=== PATIENT | female | born 1960 | race Caucasian/White ===

== ENCOUNTER 2020-11-20 09:39 | Inpatient (IN) | payer OTHER ==
[2020-11-18 16:22] LABS: BASOPHILS % (AUTO) 1 % (0-1); EOSINOPHILS % (AUTO) 3 % (1-7); LYMPHOCYTES % (AUTO) 46 % (22-44); MEAN CORPUSCULAR HEMOGLOBIN 31.1 pg (27.0-34.8); MEAN CORPUSCULAR HGB CONC 33.1 g/dL (32.4-35.8); MEAN PLATELET VOLUME 8.2 fL (7.4-10.4); MONOCYTES % (AUTO) 9 % (2-9); NEUTROPHILS % (AUTO) 42 % (42-75); PLATELET COUNT 239 x10^3/uL (130-400); RED BLOOD COUNT 3.65 x10^6/uL (3.82-5.3); RED CELL DISTRIBUTION WIDTH 13.5 % (9.6-15.2)
[2020-11-18 16:24] LABS: MD NO
[2020-11-18 16:27] LABS: HCT (SEDRATE) 34.2 % (34.6-47.8)
[2020-11-18 16:32] LABS: ALANINE AMINOTRANSFERASE 20 U/L (12-78); ALBUMIN 3.7 g/dL (3.4-5.0); ANION GAP 5 mmol/L (5-15); CALCIUM 8.5 mg/dL (8.5-10.1); CHLORIDE 109 mmol/L (98-107); CREATININE 0.87 mg/dL (0.55-1.02)
[2020-11-18 16:33] LABS: INTERNATIONAL NORMALIZED RATIO 0.98 (0.93-1.1); PROTHROMBIN TIME 10.5 Seconds (9.6-11.5)
[2020-11-18 16:35] LABS: ALKALINE PHOSPHATASE 83 U/L (45-117); BILIRUBIN,TOTAL 0.2 mg/dL (0.2-1.0); TOTAL PROTEIN 6.2 g/dL (6.4-8.2)
[~2020-11-20] VITALS: Ht 167.6 cm; Wt 76.3 kg
[~2020-11-20 09:39] MED LIST: CARISOPRODOL PO; Tramadol PO; acetaminophen PO; aspirin PO
[2020-11-20] MEDS ORDERED: LACTATED RINGERS 1,000 ML IV SCH (10:00)
[2020-11-20] MEDS ORDERED: CHLORHEXIDINE 15 ML UDC MM ONE (10:00)
[2020-11-20] MEDS ORDERED: VANCOMYCIN PER PHARMACY MC ONE (10:00)
[2020-11-20] MEDS ORDERED: CHLORHEXIDINE 15 ML UDC ONE (10:13)
[2020-11-20] MEDS ORDERED: VANCOMYCIN 1,300 MG in SODIUM CHLORIDE 0.9% 250 ML IV ONE (10:30)
[2020-11-20] MEDS ORDERED: PHARMACOKINETIC CONSULTATION MC ONE (10:30)
[2020-11-20] MEDS ORDERED: MIDAZOLAM 1 MG/ML, 2ML ONE (13:45)
[2020-11-20] MEDS ORDERED: FENTANYL PF 250 MCG/5ML ONE (13:56)
[2020-11-20] MEDS ORDERED: EPINEPHRINE 1 MG/ML, 1ML ONE (14:28)
[2020-11-20] MEDS ORDERED: BUPIVACAINE/PF 0.5% ONE (14:28)
[2020-11-20] MEDS ORDERED: TRANEXAMIC ACID 100 MG/ML, 10ML ONE (14:29)
[2020-11-20] MEDS ORDERED: methylPREDNISolone *ACETATE* 40 MG/ML ONE (14:29)
[2020-11-20] MEDS ORDERED: THROMBIN 20,000 UNIT VIAL TP ONE (14:29)
[2020-11-20] MEDS ORDERED: BACITRACIN 50,000 UNIT ONE (14:29)
[2020-11-20] MEDS ORDERED: OXYcodone 5 MG/5 ML ORAL.SOL UDC PO PRN (15:00)
[2020-11-20] MEDS ORDERED: PROMETHAZINE 25 MG/ML, 1ML IV PRN (15:00)
[2020-11-20] MEDS ORDERED: MEPERIDINE/PF 25MG/0.5ML IVPush PRN (15:00)
[2020-11-20] MEDS ORDERED: hydrALAzine 20 MG/ML, 1ML IV PRN (15:00)
[2020-11-20] MEDS ORDERED: LABETALOL 5MG/ML, 20ML IV PRN (15:00)
[2020-11-20] MEDS ORDERED: KETOROLAC 30 MG/1 ML IV PRN (15:00)
[2020-11-20] MEDS ORDERED: ALBUTEROL SULFATE 2.5 MG/3 ML NPPB PRN (15:00)
[2020-11-20] MEDS ORDERED: DIAZEPAM 5 MG/ML, 2ML IVPush PRN (15:00)
[2020-11-20] MEDS ORDERED: ACETAMINOPHEN 325 MG TABLET PO PRN (15:00)
[2020-11-20] MEDS ORDERED: PROPOFOL 200 ML ONE (15:02)
[2020-11-20] MEDS ORDERED: BUPIVACAINE/PF-EPI 0.5% 1:200K IM ONE (15:57)
[2020-11-20] MEDS ORDERED: GLYCOPYRROLATE 0.2MG/1ML, 5ML ONE (16:58)
[2020-11-20] MEDS ORDERED: NEOSTIGMINE 1 MG/ML, 10ML ONE (16:58)
[2020-11-20] MEDS ORDERED: PROPOFOL 10 MG/ML, 20ML ONE (16:58)
[2020-11-20] MEDS ORDERED: ROCURONIUM 10MG/ML,5ML ONE (16:58)
[2020-11-20] MEDS ORDERED: ONDANSETRON 2MG/ML, 2ML ONE (16:58)
[2020-11-20] MEDS ORDERED: SUCCINYLCHOLINE 20 MG/ML, 10ML ONE ×2 (16:58)
[2020-11-20] MEDS ORDERED: DEXAMETHASONE 4 MG/ML, 1ML ONE (16:58)
[2020-11-20] MEDS ORDERED: CEFAZOLIN 1,000 MG ONE (16:58)
[2020-11-20] MEDS ORDERED: FENTANYL PF 100 MCG/2ML ONE (17:04)
[2020-11-20] MEDS ORDERED: HYDROmorphone 2 MG/ML, 1ML ONE (17:05)
[2020-11-20] MEDS ORDERED: OXYcodone 5 MG/5 ML ORAL.SOL UDC ONE (17:05)
[2020-11-20] MEDS: FENTANYL PF 100 MCG/2ML IV PRN ×2 (17:07→17:12)
[2020-11-20] MEDS: HYDROmorphone 2 MG/ML, 1ML IVPush PRN ×3 (17:27→17:40)
[2020-11-20] MEDS ORDERED: MAGNESIUM HYDROXIDE 8%, 30ML UDC PO PRN (17:30)
[2020-11-20] MEDS ORDERED: SODIUM CHLORIDE 0.9% 1,000 ML IV PRN (17:30)
[2020-11-20] MEDS ORDERED: DIPHENHYDRAMINE 50 MG/ML, 1ML IM PRN (17:30)
[2020-11-20] MEDS ORDERED: SENNA/DOCUSATE TABLET PO PRN (17:30)
[2020-11-20] MEDS ORDERED: PROMETHAZINE 25 MG/ML, 1ML IM PRN (17:30)
[2020-11-20] MEDS ORDERED: BISACODYL 10 MG SUPP PR PRN (17:30)
[2020-11-20] MEDS ORDERED: DIPHENHYDRAMINE 50 MG CAPSULE PO PRN (17:30)
[2020-11-20] MEDS ORDERED: ACETAMINOPHEN 650 MG SUPP PR PRN (17:30)
[2020-11-20] MEDS ORDERED: morphine SULFATE 10 MG/ML, 1ML IVPush PRN (17:30)
[2020-11-20] MEDS ORDERED: OXYcodone IR 5MG TABLET PO PRN (17:30)
[2020-11-20] MEDS ORDERED: DEXAMETHASONE 4 MG/ML, 1ML IVPush PRN (17:30)
[2020-11-20] MEDS ORDERED: DIPHENHYDRAMINE 50 MG/ML, 1ML IVPush PRN (17:30)
[2020-11-20] MEDS ORDERED: HYDROcodone/APAP 5/325 TABLET PO PRN (17:30)
[2020-11-20] MEDS ORDERED: METHOCARBAMOL 1000MG/10 ML IVPB PRN (17:30)
[2020-11-20] MEDS ORDERED: DIAZEPAM 5 MG TABLET PO PRN (17:30)
[2020-11-20] MEDS ORDERED: LORazepam 1MG TABLET PO PRN (17:30)
[2020-11-20] MEDS ORDERED: ONDANSETRON 2MG/ML, 2ML IV PRN (17:30)
[2020-11-20] MEDS ORDERED: LABETALOL 5MG/ML, 20ML IVPush PRN (17:30)
[2020-11-20] MEDS ORDERED: KETOROLAC 30 MG/1 ML IVPush PRN ×2 (17:30→17:33)
[2020-11-20] MEDS ORDERED: KETOROLAC 30 MG/1 ML IVPush ONE (18:00)
[2020-11-20] MEDS ORDERED: TRANEXAMIC ACID 1,000 MG in SODIUM CHLORIDE 0.9% 100 ML IVPB ONE (18:00)
[2020-11-20] MEDS: METHOCARBAMOL 1,000 MG in DEXTROSE 5% 100 ML IV SCH (18:50)
[2020-11-20 19:04] VITALS: BP 135/80
[2020-11-20] MEDS: NS + 20MEQ KCL 1,000 ML IV SCH (20:28)
[2020-11-20] MEDS: OXYcodone IR 5MG TABLET PO PRN (20:29)
[2020-11-20] MEDS ORDERED: ZOLPIDEM 5MG TABLET PO PRN (21:00)
[2020-11-20] MEDS: ACETAMINOPHEN 500 MG TABLET PO PRN (23:02)
[2020-11-21] MEDS: OXYcodone IR 5MG TABLET PO PRN ×4 (00:13→12:59)
[2020-11-21] MEDS: CEFAZOLIN PMX 1GM/50ML 50 ML IVPB SCH ×2 (01:16→09:11)
[2020-11-21 01:29] VITALS: BP 119/79
[2020-11-21] MEDS: METHOCARBAMOL 1,000 MG in DEXTROSE 5% 100 ML IV SCH ×2 (02:07→09:30)
[2020-11-21 03:13] VITALS: BP 124/75
[2020-11-21 05:44] LABS: BASOPHILS % (AUTO) 0 % (0-1); EOSINOPHILS % (AUTO) 0 % (1-7); LYMPHOCYTES % (AUTO) 15 % (22-44); MEAN CORPUSCULAR HEMOGLOBIN 31.5 pg (27.0-34.8); MEAN CORPUSCULAR HGB CONC 34.1 g/dL (32.4-35.8); MEAN PLATELET VOLUME 8.5 fL (7.4-10.4); MONOCYTES % (AUTO) 7 % (2-9); NEUTROPHILS % (AUTO) 77 % (42-75); PLATELET COUNT 227 x10^3/uL (130-400); RED BLOOD COUNT 3.39 x10^6/uL (3.82-5.3); RED CELL DISTRIBUTION WIDTH 13.3 % (9.6-15.2)
[2020-11-21] MEDS: NS + 20MEQ KCL 1,000 ML IV SCH (05:47)
[2020-11-21 05:51] LABS: MD NO
[2020-11-21 07:38] VITALS: BP 108/68
[2020-11-21] MEDS: ACETAMINOPHEN 500 MG TABLET PO PRN (08:42)
[2020-11-21] MEDS ORDERED: OXYC5CAP2 PO (13:27)
[2020-11-21] MEDS ORDERED: METH750T87 PO (13:28)
[2020-11-23] MEDS ORDERED: METHOCARBAMOL 750 MG TABLET PO SCH (02:00)
[2020-11-25] MEDS ORDERED: DICLOFENAC SODIUM 75 MG TABLET.DR PO SCH (17:00)
== END 2020-11-21 14:13 | disposition home or self-care (01) | DRG 473 ==
LOC: ORIP 09:39 → 4NE 18:36 → DCLOUNGE 11-21 14:07
PROVIDERS: ADMIT Orthopaedic Surgery Orthopaedic Surgery of the Spine; ATTEND Orthopaedic Surgery Orthopaedic Surgery of the Spine
PROC: 00NW0ZZ Release Cervical Spinal Cord, Open Approach (ICD-10-PCS; 2020-11-20)
PROC: 01N10ZZ Release Cervical Nerve, Open Approach (ICD-10-PCS; 2020-11-20)
PROC: 0RB30ZZ Excision of Cervical Vertebral Disc, Open Approach (ICD-10-PCS; 2020-11-20)
PROC: 4A11X4G Monitoring of Peripheral Nervous Electrical Activity, Intraoperative, External Approach (ICD-10-PCS; 2020-11-20)
PROC: 0RG20A0 Fusion of 2 or more Cervical Vertebral Joints with Interbody Fusion Device, Anterior Approach, Anterior Column, Open Approach (ICD-10-PCS; principal; 2020-11-20 12:00)
DX: M50.021 Cervical disc disorder at C4-C5 level with myelopathy (principal); M48.02 Spinal stenosis, cervical region; M50.121 Cervical disc disorder at C4-C5 level with radiculopathy; Z20.822 Contact with and (suspected) exposure to COVID-19
CPT/HCPCS: 36415; 72040; S0020; 71046; 80053; 83036; 85025; 85610; 85651; 85730; 93005; 95938; 95941; C1713; G0378; J0171; J0690; J1100; J1170; J1885; J2250; J2405; J2704; J2710; J3010; J3480; C1760; C1762; C1889; J0330; J1030; J2800; J7120; U0003